=== PATIENT | female | born 1975 | race Caucasian/White ===

== ENCOUNTER 2022-09-09 06:35 | Day surgery (SDC) | payer BC ==
[2022-09-07 10:18] LABS: CARBON DIOXIDE,CO2 27.7 mmol/L (21.0-32.0); POTASSIUM,K 3.9 mmol/L (3.5-5.1)
[~2022-09-09 06:35] MED LIST: Lactated Ringers 1,000 ML IV SCH; Sodium Chloride 0.9% 10 ML Syringe FLUSH PRN; Sodium Chloride 0.9% 2.5 ML Syringe FLUSH PRN; Sodium Chloride 0.9% 20 ML SDV IV PRN; cefOXitin 2 GM in Premix Bag 1 BAG IV ONE
[2022-09-09] MEDS ORDERED: Albuterol 0.083% 2.5 MG/3 ML Neb Soln NEB PRN (07:13)
[2022-09-09] MEDS ORDERED: Naloxone 0.4 MG/ML SDV IVPUSH PRN (07:13)
[2022-09-09] MEDS ORDERED: fentaNYL 50 MCG/ML SDV IVPUSH PRN (07:13)
[2022-09-09] MEDS ORDERED: Metoclopramide 10 MG/2 ML SDV IVPUSH PRN (07:13)
[2022-09-09] MEDS ORDERED: HYDROmorphone 1 MG/ML Syringe IVPUSH PRN (07:13)
[2022-09-09] MEDS ORDERED: Ondansetron 4 MG/2 ML SDV IVPUSH PRN ×2 (07:13→11:24)
[2022-09-09] MEDS ORDERED: Morphine 2 MG/ML SYRINGE IVPUSH PRN (07:13)
[2022-09-09] MEDS ORDERED: cefOXitin 1 GM Vial ONE (07:15)
[2022-09-09] MEDS ORDERED: fentaNYL 250 MCG/5 ML SDV ONE (07:15)
[2022-09-09] MEDS ORDERED: Propofol 200 MG/20 ML SDV ONE ×2 (07:16→09:10)
[2022-09-09] MEDS ORDERED: Bupivacaine 0.25% 30 ML SDV ONE (07:17)
[2022-09-09] MEDS ORDERED: Ropivacaine 0.5% 5 MG/ML 30 ML SDV ONE (07:17)
[2022-09-09] MEDS ORDERED: ePHEDrine 50 MG/ML SDV ONE (07:18)
[2022-09-09] MEDS ORDERED: Ketorolac 30 MG/ML SDV ONE (07:18)
[2022-09-09] MEDS ORDERED: Sugammadex Sodium 200 MG/2 ML VIAL ONE (07:18)
[2022-09-09] MEDS ORDERED: Dexamethasone 4 MG/ML 5 ML MDV ONE (07:18)
[2022-09-09] MEDS ORDERED: Lidocaine 2% 5 ML SDV ONE (07:18)
[2022-09-09] MEDS ORDERED: Phenylephrine 1% 10 MG/ML SDV ONE (07:18)
[2022-09-09] MEDS ORDERED: Dexmedetomidine 200 MCG/2 ML SDV ONE (07:18)
[2022-09-09] MEDS ORDERED: Glycopyrrolate 0.2 MG/ML SDV ONE (07:18)
[2022-09-09] MEDS ORDERED: Water For Injection, Sterile 20 ML ONE (07:20)
[2022-09-09] MEDS ORDERED: Rocuronium 50 MG/5 ML Vial ONE ×2 (07:26→09:10)
[2022-09-09] MEDS ORDERED: Fluorescein 5 ML Vial ONE (07:42)
[2022-09-09] MEDS ORDERED: Magnesium Sulfate (4.06 MEQ/ML) 5 GM/10 ML SDV ONE (08:17)
[2022-09-09] MEDS ORDERED: HYDROmorphone 2 MG/ML Syringe ONE (08:57)
[2022-09-09] MEDS ORDERED: Ketorolac 30 MG/ML SDV IVPUSH PRN (11:24)
[2022-09-09] MEDS ORDERED: Morphine 4 MG/ML Syringe IVPUSH PRN (11:24)
[2022-09-09] MEDS ORDERED: Promethazine 25 MG/ML SDV IM PRN (11:24)
[2022-09-09] MEDS ORDERED: Acetaminophen/oxyCODONE 325-5 MG Tab PO PRN (11:24)
[2022-09-09] MEDS ORDERED: Ketorolac 30 MG/ML SDV IVPUSH ONE (11:24)
[2022-09-09] MEDS ORDERED: Carboxymethylcellulose Sodium 0.5% Ophth Soln 0.4 ML UD Box of 30 EYEBOTH PRN (17:18)
[2022-09-09] MEDS: Acetaminophen/oxyCODONE 325-5 MG Tab PO PRN (20:15)
[2022-09-10 06:27] LABS: CARBON DIOXIDE,CO2 26.3 mmol/L (21.0-32.0); POTASSIUM,K 3.8 mmol/L (3.5-5.1)
[2022-09-10] MEDS: Acetaminophen/oxyCODONE 325-5 MG Tab PO PRN (08:14)
== END 2022-09-10 10:20 | disposition home or self-care (01) ==
LOC: MW.SDS 06:35 → MW.OB 13:37 → MW.SDS 09-10 10:20
PROVIDERS: ATTEND Obstetrics & Gynecology
DX: D25.1 Intramural leiomyoma of uterus (principal); D25.0 Submucous leiomyoma of uterus; N80.03 Adenomyosis of the uterus; N83.201 Unspecified ovarian cyst, right side; G47.30 Sleep apnea, unspecified; E66.9 Obesity, unspecified; F17.290 Nicotine dependence, other tobacco product, uncomplicated; Z68.41 Body mass index [BMI] 40.0-44.9, adult; Z98.890 Other specified postprocedural states; Z79.899 Other long term (current) drug therapy
CPT/HCPCS: 36415; 58571; 80048; 84703; 85025; 85027; 86304; 86850; 86900; 86901; A9270; J0131; J0694; J1100; J1170; J1885; J2270; J2370; J2704; J2795; J3010; J3475; J3490; J7030; J7120; 00840; 64488